=== PATIENT | male | born 1985 | race Caucasian/White ===

== ENCOUNTER → 2024-03-02 09:26 | Outpatient (REF) | payer BC, SELFPAY ==
[2024-03-02 12:23] LABS: Prolactin 11.9 ng/ml (3.7-17.9)
[2024-03-04 18:33] LABS: % Free Testosterone 1.7 % (1.6-2.9); Free Testosterone 57 pg/mL (47-244); Sex Hormone Binding Globulin 38 nmol/L (17-56); Total Testosterone 341 ng/dL (300-1080)
== END ==
LOC: RCS 09:26
PROVIDERS: ATTENDING PHYSICIAN Family Medicine
DX: F90.2 Attention-deficit hyperactivity disorder, combined type (principal); T88.7XXA Unspecified adverse effect of drug or medicament, initial encounter; R79.89 Other specified abnormal findings of blood chemistry
CPT/HCPCS: 36415; 84146; 84270; 84402; 84403; 93005

== ENCOUNTER → 2024-04-21 11:07 | Outpatient (REF) | payer BC, SELFPAY | LOC: RCS 11:07 | PROVIDERS: ATTENDING PHYSICIAN Family Medicine | DX: F90.1 Attention-deficit hyperactivity disorder, predominantly hyperactive type (principal); T88.7XXA Unspecified adverse effect of drug or medicament, initial encounter | CPT/HCPCS: 93306 ==